=== PATIENT | female | born 1975 | race Caucasian/White ===

== ENCOUNTER 2022-03-27 09:57 | Outpatient (CLI) | payer OTHER, SELFPAY ==
--- NOTE | 2022-03-27 10:17 | ECG_ITS ---
Measurements Intervals [place] Rate: 67 P: 53 NJ: 139 QRS: -24 QRSD: 106 T: -3 QT: 387 QTc: 410 Interpretive Statements SINUS RHYTHM WITH OCCASIONAL VENTRICULAR PREMATURE COMPLEXES LOW QRS VOLTAGE IN PRECORDIAL LEADS [QRS DEFLECTION < 1.0 mV IN CHEST LEADS] INCOMPLETE RIGHT BUNDLE BRANCH BLOCK [90+ ms QRS DURATION, TERMINAL R IN V1/V2, 40+ ms S IN I/aVL/V4/V5/V6] NO PREVIOUS ECG AVAILABLE FOR COMPARISON Electronically Signed On 03-27-2022 14:53:41 [employer] by Yee iMr M.D.
[2022-03-27 10:52] LABS: Hematocrit 40.5 % (37.0-47.0); Hemoglobin 13.2 g/dL (12.0-15.0); Mean Corpuscular HGB Conc 32.6 g/dl (32-36); Mean Platelet Volume 8.6 fl (7.4-10.4); Platelet Count Result 295 k/mm3 (150-375); Red Cell Distribution Width 14.5 % (11.5-14.5); White Blood Count 7.1 K/mm3 (4.5-10.0)
== END 2022-03-27 09:58 | disposition home or self-care (01) ==
LOC: ANHSURGERY 10:01
PROVIDERS: PCP Internal Medicine; Visit Provider Obstetrics & Gynecology
DX: Z01.812 Encounter for preprocedural laboratory examination (principal); Z01.810 Encounter for preprocedural cardiovascular examination; N99.85 Post endometrial ablation syndrome; E78.5 Hyperlipidemia, unspecified; I45.10 Unspecified right bundle-branch block
CPT/HCPCS: 36415; 85027; 86850; 86900; 86901; 93005

== ENCOUNTER 2022-03-29 01:32 | Day surgery (SDC) | payer OTHER, SELFPAY ==
[2022-03-26 14:34] VITALS: BMI 26.2
--- NOTE | 2022-03-26 14:41 | PC.NURSE ---
Report to the Outpatient Waiting Room, entrance under the green pavilion located off [facility], at time 7:30 on date 03/29/22. Planned Procedure Time: 9:30. Time changes happen often and if your time is changed the preop area will call you the afternoon before. - You and your visitor will be asked to self-screen and do not enter if you have any COVID symptoms. - Only one visitor is requested with a max of two and NO children visitors are allowed at this time. - The patient visitor may be requested to leave or wait in car when not with patient due to distancing restrictions. - A mask is optional within the hospital at this time. Patients may have clear liquids (water, carbonated beverages, clear teas, apple juice) until 3 hours prior to surgery with a maximum of 20 ounces. - No food from midnight until time of surgery Take the following medications with a SIP of water the morning of surgery: FLUOXETINE, VENLAFAXINE DO NOT STOP ANY OF YOUR OTHER PRESCRIPTION MEDICATIONS PRIOR TO SURGERY?EXCEPT THE FOLLOWING Medications to discontinue per physician: VITAMINS/SUPPLEMENTS Date to take last dose: NO MORE UNTIL AFTER SURGERY Please no make-up, nail fijian, hairspray, perfume, deodorant, or body powder the day of surgery. No jewelry (including any body piercings) or valuables the day of surgery, leave them at home. Please take a shower or bath the night before, or the morning of, surgery with an antibacterial soap. Wear comfortable, loose fitting clothing. - Jewelry must be removed prior to entering the operating room. Rings and piercings that are not removed may be cut off. - The hospital will not accept responsibility for valuables. - Please leave all valuables, including medications, at home the day of surgery. If you are going home after surgery, a licensed [employer] driver must drive you home. - NO public transportation without another adult if you receive anesthesia. - We recommend that an adult stay with you for 24 hours following discharge. - We also recommend that you do not drive, make important decision, drink alcoholic beverages, or take any drugs that were not prescribed by your health care provider for at least 24 hours after your discharge time. Follow any additional instructions given to you from your surgeon. If you or anyone in your household have experienced Covid symptoms in the past week, please notify your surgeon or the nurse liaison at the phone number below for possible testing. Telephone instructions given to PT - ADRIÁN FLORIAN and asked if any additional questions and then verbalized understanding. Patient advised to call surgeon office or pre surgery nurse liaison [phone] if any additional questions.
[2022-03-29] VITALS (10 sets, daily range): BP systolic 105–122; BP diastolic 62–83; PULSE 75–101; RESP 12–18; TEMP 36.4–37.1; O2SAT 95–100; BMI 26.8
--- NOTE | 2022-03-29 07:20 | WPDHPUPDATE1 ---
History and Physical Update Update Date/Time: 03/29/22 07:20 Plan: Robotic hysterectomy with ovarian preservation. Tubal segments will be removed if present. History and Physical has been reviewed, including an updated exam of the patient. There are NO changes in the patient's condition. Risks, benefits, and alternatives have been discussed and questions answered. Patient agrees to proceed with procedure.
[2022-03-29] MEDS: LACTATED RINGERS 1,000 ML 30 ML IV CONT ×2 (08:00→11:35)
[2022-03-29] MEDS: ACETAMINOPHEN 500 MG TABLET 1000 MG PO (08:11)
--- NOTE | 2022-03-29 08:43 | WPDANESEPPF ---
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 Patient Data Age: 46 Gender: F Height: 1.57 m Weight: 66.5 kg Last Vital Signs Temp 36.4 C 03/29/22 07:40 Pulse 75 03/29/22 07:40 Resp 14 03/29/22 07:40 BP 112/70 03/29/22 07:40 Pulse Ox 100 03/29/22 07:40 O2 Del Method Room Air 03/29/22 07:40 Allergies Allergy/AdvReac Type Severity Reaction Status Date / Time NSAIDS (Non-Steroidal Allergy Unknown Other Verified 03/29/22 08:15 Anti-Inflamma Home Medications Medication Instructions Recorded Confirmed Type ergocalciferol (vitamin D2) 1,250 1,250 mcg PO WEEKLY 12/25/21 03/29/22 History mcg (50,000 unit) capsule fluoxetine 20 mg tablet 20 mg PO DAILY 12/25/21 03/29/22 History montelukast 10 mg tablet 10 mg PO DAILY 12/25/21 03/26/22 History omeprazole 20 mg capsule,delayed 20 mg PO DAILY 12/25/21 03/26/22 History release polysaccharide iron complex 150 mg 150 mg PO DAILY 12/25/21 03/26/22 History iron capsule spironolactone 100 mg tablet 100 mg PO DAILY 12/25/21 03/26/22 History trazodone 50 mg tablet 50 mg PO QHS PRN Insomnia 12/25/21 03/26/22 History venlafaxine 75 mg capsule,extended 75 mg PO DAILY 12/25/21 03/29/22 History release 24 hr rosuvastatin 20 mg tablet 20 mg PO DAILY 03/26/22 03/26/22 History Patient hx anesthesia problems: none Family hx anesthesia problems: none Results Review: All pre-operative results and documents have been reviewed as part of the pre-operative evaluation. [facility] Past Medical History Medical History Anxiety and depression Arthritis Condyloma acuminata Encounter for screening examination for sexually transmitted disease Hidradenitis suppurativa High cholesterol Neuroma of foot Polycystic ovarian syndrome Surgical History Surgical History H/O gastric sleeve (08/02/21) History of appendectomy (10/06/19) History of back surgery (08/18/08) History of 03/25/10 primary c/s w/(R) ovarian cystectomy--failure to dilate, (R) ovarian cyst Kirin 06/27/15 rpt c/s w/tubal ligation Billie History of dilation and curettage (11/19/19) hscope d&c/nathalie ablation--menometrorrhagia, dysmenorrhea History of endometrial ablation (11/19/19) hscope d&c/nathalie ablation--menometrorrhagia, dysmenorrhea History of eye surgery (~1981) eye correction for crossed eyes History of gynecologic surgery (~1989) hymenectomy History of ovarian cystectomy 05/19/09 (R) lscope ovarian cystectomy 03/25/10 (R) ovarian cystectomy during primary c/s History of skin surgery (~2004) skin patch removed for hidradenitis History of tonsillectomy and adenoidectomy (~1986) Family History Family History Mother Heart disease Arthritis Fibromyositis Father Peripheral vascular disease Malignant neoplasm of prostate Degeneration of intervertebral disc Sibling Acute myocardial infarction brother Other Asthma Social History Social History Smoking packs per day: 1 Smoking cigarettes per day: 20.0 Years smoked: 20 Smoking pack-years: 20.00 Smoking status: Former smoker Tobacco type: cigarettes Smoking end date: 02/18/14 Alcohol intake: never Substance use: never Substance use type: does not use Living arrangements: with family Additional living arrangements comments: CHILDREN & BOYFRIEND Occupation/Education: occupation 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
[2022-03-29] MEDS: ceFAZolin 2 GM/D5W 50 ML 2 GM/50 ML BAG IVPB (09:55)
--- NOTE | 2022-03-29 11:17 | W.PM.PROC2 ---
Procedure Note - Detailed Date of Procedure 03/29/22 Pre-op Diagnosis 1. Menometrorrhagia 2.prior endometrial ablation 3. Prior section x2 Post-op Diagnosis Same (4. Adhesions) Procedure Performed 1. Robotic assisted total laparoscopic hysterectomy 2. Bilateral salpingectomy 3. Adhesiolysis Surgeon Terence Copeland MD Anesthesia General Findings Findings upon entry into the abdominal cavity omental adhesions to the anterior abdominal wall were noted. Also adhesions of the bladder flap to the left pelvic sidewall. Segments of tube were noted bilaterally, and ovaries without abnormality Description of Procedure Patient was prepped and draped usual manner for this procedure. Cervical instruments were placed for mobility throughout the case. Abdominal trocar sites were then marked and placed under direct visualization, ablation was placed in Trendelenburg position, and the ports were tested Bam system and this was followed by instruments being placed under direct visualization. Surgeon moved to the console and 1st cauterized and cut the adhesions to the anterior abdominal wall to allow the pelvis to be entered. Once this was done findings were noted as above. Mesial salpinx was cauterized and cut bilaterally in the segments of tube were removed utero-ovarian ligament cauterized and cut and the round ligament was cauterized and cut. The adhesions to the left lower quadrant were then cauterized and cut and the bladder flap was developed without difficulty. Uterine vessels were then skeletonized cauterized and cut. Posterior colpotomy incision was made this was carried circumferentially around the cervix through separate the cervix from the vaginal wall. Uterus delivered into the vagina and the cuff was then closed using V lock suture from the right angle to the midline in the from the left angle to the midline with good approximation hemostasis noted. Irrigation was undertaken there was no significant bleeding. Roxy was placed empirically overall the incision sites. At this point procedure was considered terminated, trocars removed 4-0 Monocryl was used to approximate skin edges the patient was sent to recovery room in stable condition. Estimated Blood Loss 50 Drains No Packing No Pathology Yes Complications No immediate complications Condition Stable Disposition PACU [facility] Billing Surgery - Charge Forward: Surgery Billing
[2022-03-29] MEDS: fentaNYL CITRATE INJ (*CRX) 100 MCG/2 ML VIAL 25 MCG IV PUSH ×2 (12:24→12:28)
--- NOTE | 2022-03-29 12:48 | ADMGEN ---
This patient, Klaudia Vazquez, was admitted to OB 2nd Floor Room 287-00. Patient/family oriented to hospital policies and general routines including ID bracelet, bed and alarms, visiting hours, pain management, procedures, bathroom and other care routines, personal items, smoking policy, room service/diet, and visiting hours. Information on how to activate the Rapid Response Team has been discussed. Patient/Family are encouraged to report perceived risks to care and to ask questions if they do not understand what they are told or what they should do.
[2022-03-29] MEDS: DEXTROSE 5%/LACTATED RINGERS 1,000 ML 125 ML IV CONT (13:31)
[2022-03-29] MEDS: MORPHINE SULFATE (*CRX) 4 MG/ML INJ IV PUSH (13:33)
[2022-03-29] MEDS: HYDROcodone/acetaminophen (*CRX) 5-325 MG TABLET 1 TAB PO (15:33)
[2022-03-29] MEDS: HYDROcodone/acetaminophen (*CRX) 10-325 MG TABLET 1 TAB PO ×2 (19:44→23:07)
[2022-03-30] MEDS: HYDROcodone/acetaminophen (*CRX) 10-325 MG TABLET 1 TAB PO ×3 (02:47→10:08)
[2022-03-30 05:10] VITALS: BP 105/71; PULSE 72; RESP 16; TEMP 36.6
[2022-03-30 05:39] LABS: Basophils Percent Auto 0.3 % (0.2-1.2); Eosinophils Percent Auto 0.2 % (0-4.4); Hematocrit 37.6 % (37.0-47.0); Hemoglobin 12.2 g/dL (12.0-15.0); Immature Granulocyte Absolute 0.04 K/mm3 (0.00-0.031); Immature Granulocyte Percent A 0.4 % (0-0.5); Lymphocytes Absolute Auto 1.78 K/mm3 (0.9-3.2); Lymphocytes Percent Auto 15.7 % (18.3-44.2); Mean Corpuscular HGB Conc 32.4 g/dl (32-36); Mean Corpuscular Hemoglobin 30.3 pg (26-34); Mean Corpuscular Volume 93.5 fl (80-100); Mean Platelet Volume 8.4 fl (7.4-10.4); Monocytes Absolute Auto 1.2 K/mm3 (0.1-0.6); Monocytes Percent Auto 10.2 % (2.6-8.5); Neutrophils Absolute Auto 8.3 K/mm3 (1.3-6.7); Neutrophils Percent Auto 73.2 % (45.5-73.1); Platelet Count Result 281 k/mm3 (150-375); Red Blood Count 4.02 M/mm3 (4.2-5.4); Red Cell Distribution Width 14.3 % (11.5-14.5); White Blood Count 11.3 K/mm3 (4.5-10.0)
[2022-03-30] MEDS: PANTOPRAZOLE 40 MG TABLET PO (07:04)
[2022-03-30] MEDS: MONTELUKAST SODIUM 10 MG TABLET PO (07:04)
[2022-03-30] MEDS: ROSUVASTATIN 10 MG TABLET 20 MG PO (07:04)
[2022-03-30] MEDS: SPIRONOLACTONE 50 MG TABLET 100 MG PO (07:04)
[2022-03-30 07:05] VITALS: BP 96/63; PULSE 65; RESP 16; TEMP 36.8; O2SAT 100
[2022-03-30] MEDS: VENLAFAXINE HCL XR 75 MG CAP.ER.24H PO (07:05)
[2022-03-30] MEDS: FLUoxetine HCL 20 MG CAPSULE PO (07:09)
--- NOTE | 2022-03-30 09:07 | WPDANLDNPN2 ---
Anes-Prog Note L&D-Neuraxial Date/Time: 03/30/22 09:07 Neuraxial medications: epidural PF morphine Opiod-related complaints: pruritis severe, treatment refractory (severe, no treatment) Patient feedback: Patient satisfied with post-operative pain management.
--- NOTE | 2022-03-30 09:10 | WPDANESPN ---
Anes - Prog Note Post-Op Date/Time: 03/30/22 09:10 Cardiovascular status: normal Respiratory status: normal Airway patency: baseline Mental status: baseline Post-Op hydration status: normal Vital Signs: Last Vital Signs Temp 98.2 F 03/30/22 07:05 Pulse 65 03/30/22 07:05 Resp 16 03/30/22 07:05 BP 96/63 L 03/30/22 07:05 Pulse Ox 100 03/30/22 07:05 O2 Del Method Room Air 03/30/22 07:05 O2 Flow Rate 8 03/29/22 12:05 Pain Score (VAS): 7 I/O: Intake & Output 03/29/22 03/30/22 03/30/22 23:59 07:59 15:59 Intake Total 627 Output Total 300 Balance 327 Laboratory Tests 03/30/22 05:14 03/30/22 05:14 WBC 11.3 H RBC 4.02 L Hgb 12.2 Hct 37.6 MCV 93.5 MCH 30.3 MCHC 32.4 RDW 14.3 Plt Count 281 MPV 8.4 Immature Gran % (Auto) 0.4 Neut % (Auto) 73.2 H Lymph % (Auto) 15.7 L [place] % (Auto) 10.2 H Eos % (Auto) 0.2 Baso % (Auto) 0.3 Lymph # (Auto) 1.78 [place] # (Auto) 1.2 H Eos # (Auto) 0.0 Baso # (Auto) 0.0 Abs Immat Gran (auto) 0.04 H Absolute Neuts (auto) 8.3 H Absolute Nucleated RBC 0.0 Nucleated RBC % 0.0 Post-procedural complaints: none Patient Feedback: Patient satisfied with anesthetic care.
== END 2022-03-30 10:40 | disposition home or self-care (01) ==
LOC: ANHSURGERY 07:35 → ANHOB2 14:00
PROVIDERS: PCP Internal Medicine; Visit Provider Obstetrics & Gynecology
PROC: (CPT 58571; principal; 2022-03-29 09:30)
DX: N92.1 Excessive and frequent menstruation with irregular cycle (principal); N99.85 Post endometrial ablation syndrome; N73.6 Female pelvic peritoneal adhesions (postinfective); N72 Inflammatory disease of cervix uteri; N83.8 Other noninflammatory disorders of ovary, fallopian tube and broad ligament; E78.00 Pure hypercholesterolemia, unspecified; E28.2 Polycystic ovarian syndrome; F41.8 Other specified anxiety disorders; Z98.84 Bariatric surgery status; Z87.891 Personal history of nicotine dependence
CPT/HCPCS: 58571; S2900; 36415; 85025; 88307; 99199; A9270; J0690; J1100; J1170; J1885; J2250; J2270; J2405; J2704; J2710; J3010; J7030; J7120; J7121